=== PATIENT | female | born 1970 | race Caucasian/White ===

== ENCOUNTER 2019-10-10 15:31 | Emergency (ER) | payer OTHER, SELFPAY ==
[2019-10-10 15:34] VITALS: BP 116/90; PULSE 67; RESP 18; TEMP 36.8; O2SAT 98
--- NOTE | 2019-10-10 16:11 | W.ED.GENAD ---
Discharge Plan Disposition Patient Disposition: HOME Condition: Stable Discharge Details Chief Complaint: Abd Prob Clinical Impression: Rectal bleeding Primary Care Provider: Elle Gordillo ED Provider: Branden Early Home Meds and New Rx's Prescriptions: Continued losartan 50 mg Tablet 50 mg PO DAILY RF: 0 atorvastatin 40 mg Tablet 40 mg PO DAILY RF: 0 venlafaxine 75 mg Capsule,Extended Release 24hr 75 mg PO BID RF: 0 tizanidine 4 mg Tablet 4 mg PO BID RF: 0 doxepin 75 mg Capsule 75 mg PO QHS RF: 0 Humulin 70/30 U-100 Insulin 100 unit/mL (70-30) Suspension 40 unit SUBCUT DAILY RF: 0 amlodipine 5 mg Tablet 5 mg PO DAILY RF: 0 aspirin 81 mg Tablet,Delayed Release (Dr/Ec) 81 mg PO DAILY RF: 0 buspirone 10 mg Tablet 10 mg PO TID RF: 0 hydrochlorothiazide 12.5 mg Capsule 12.5 mg PO DAILY RF: 0 hydroxyzine HCl 25 mg Tablet 25 mg PO DAILY RF: 0 Novolin R Flexpen 100 unit/mL (3 mL) Insulin Pen 5 unit SUBCUT DAILY RF: 0 metoprolol tartrate 25 mg Tablet 75 mg PO BID RF: 0 lactulose 10 gram/15 mL Solution 10 g PO DAILY RF: 0 topiramate 150 mg Capsule,Sprinkle,Er 24hr 150 mg PO DAILY RF: 0 Discharge Instructions Instructions: Rectal Bleeding (ED) Additional Instructions: At this time your laboratory values and CT are unremarkable for emergent process. As we discussed I believe you can safely be discharged at this time with very close and prompt outpatient follow-up when you return home to [place] through your primary care provider and a general surgeon for outpatient endoscopy. During her travels if anything changes I do recommend you go directly to the nearest ER. Medical Decision Making 48-year-old female with diabetes, hyperlipidemia, hypertension, obesity, traveling back to [place] tomorrow presents with bright red blood from her rectum that began yesterday, worsened today. Reports abdominal cramping. Denies nausea, vomiting, passing clots from her rectum. She did fall through a trailer floor 2 days ago. She appears well, nontoxic, she is hemodynamically stable. Rectal exam does not reveal obvious hemorrhoid, heme positive guaiac. Will not reflexively type and screen her as her vital signs appear unremarkable and she is not showing signs of active hemorrhaging. Will obtain routine laboratory values, obtain CT imaging, give IV fluid and reassess. This could be related to her IBS, diverticulitis, hemorrhoids, recent trauma, etc. Upon reassessment she is eating a turkey sandwich. White blood cell count of 6.78 hemoglobin 13.4 hematocrit 42. 4, platelet count 232. Electrolytes unremarkable. Creatinine 1.24 with a GFR of 45.98. I did place her for a second liter of fluid. Upon further investigation she does report mild chronic renal disease. She also reports a history of IBS and tells me that she takes Maalox daily. Glucose 110. Urinalysis reveals small blood, small leuk esterase, 5-10 white cells with moderate epis, reflex to culture. Given she has no urinary symptoms will not prophylactically treat with antibiotics and await culture. I was able to review her record from [facility]. X-rays were obtained, no labs or mention of rectal bleeding. CT with contrast read by radiology is unremarkable. Discussed laboratory values and CT findings with patient. She is resting comfortably and has no additional questions or concerns. She is comfortable with discharge at this time. We discussed the importance of returning here or any ER along her travels if her symptoms worsen or evolve. Otherwise I recommend that she follow-up with her primary care provider and a surgeon as soon as she returns to [place] for outpatient endoscopy for further evaluation of her symptoms. At this time she is hemodynamically stable, no signs of hemorrhaging, blood count is unremarkable. I see no reason why she may not be discharged safely with very close outpatient follow-up and return precautions. Medical Records Medical records reviewed: Yes I reviewed the patient's medical records. Medical records narrative: From [facility] Lab Data Lab results reviewed: Yes I reviewed the patient's lab results. Lab results narrative: 10/10/19 16:26 Urine - Reflex from Ua Urine Culture - Pending Laboratory Tests Range/Units 10/10/19 10/10/19 10/10/19 16:00 16:00 16:00 WBC (4.4-10.8) 10^3/uL 6.78 RBC (3.93-5.22) 10^6/uL 4.72 Hgb (11.2-15.7) g/dL 13.4 Hct (36.0-46.0) % 42.4 MCV (80-95) fL 89.8 MCH (27.0-33.0) pg 28.4 MCHC (32.0-36.0) % 31.6 L RDW (11.7-14.6) % 13.2 Plt Count (130-400) 10^3/uL 232 MPV (8.0-11.0) fL 11.5 H Immature Gran % 0.3 Neutrophils % 51.9 Lymphocytes % 33.6 Monocytes % 8.6 Eosinophils % 5.3 Basophils % 0.3 Absolute Neutrophils (1.2-6.7) 10^3/uL 3.52 Absolute Lymphocytes (1.2-3.4) 10^3/uL 2.28 Absolute Monocytes (0.1-0.8) 10^3/uL 0.58 Absolute Eosinophils (0.0-0.7) 10^3/uL 0.36 Absolute Basophils (0.0-0.2) 10^3/uL 0.02 Sodium (136-145) mmol/L 142 Potassium (3.5-5.1) mmol/L 3.5 Chloride (98-107) mmol/L 105 Carbon Dioxide (21.0-32.0) mmol/L 27.5 Anion Gap (3-11) mmol/L 9.5 BUN (7-18) mg/dL 18 Creatinine (0.55-1.02) mg/dL 1.24 H Estimated GFR/1.73 m2 (mL/min/1.73m2) 45.98 Glucose (74-106) mg/dL 110 H Calcium (8.5-10.1) mg/dL 9.4 Total Bilirubin (0.2-1.0) mg/dL 0.2 AST (15-37) U/L 28 ALT (14-59) U/L 50 Alkaline Phosphatase (46-116) U/L 83 Total Protein (6.4-8.2) g/dL 7.5 Albumin (3.4-5.0) g/dL 4.2 Lipase (73-393) U/L 123 Urine Color (Yellow) Urine Clarity (Clear) Urine pH (5-8) Ur Specific [place] (1.005-1.025) Urine Protein (Negative) mg/dL Urine Ketones (Negative) mg/dL Urine Blood (Negative) Urine Nitrite (Negative) Urine Bilirubin (Negative) Urine Urobilinogen (Up TO 0.2) EU/dL Ur Leukocyte Esterase (Negative) Urine RBC (0-2) HPF Urine WBC (0-5) HPF Ur Epithelial Cells (Negative) HPF Urine Crystals (Negative) HPF Urine Bacteria (Negative) HPF Urine Mucus (Negative) Ur Culture Indicated? Urine Glucose (Negative) mg/dL Range/Units 10/10/19 16:26 WBC (4.4-10.8) 10^3/uL RBC (3.93-5.22) 10^6/uL Hgb (11.2-15.7) g/dL Hct (36.0-46.0) % MCV (80-95) fL MCH (27.0-33.0) pg MCHC (32.0-36.0) % RDW (11.7-14.6) % Plt Count (130-400) 10^3/uL MPV (8.0-11.0) fL Immature Gran % Neutrophils % Lymphocytes % Monocytes % Eosinophils % Basophils % Absolute Neutrophils (1.2-6.7) 10^3/uL Absolute Lymphocytes (1.2-3.4) 10^3/uL Absolute Monocytes (0.1-0.8) 10^3/uL Absolute Eosinophils (0.0-0.7) 10^3/uL Absolute Basophils (0.0-0.2) 10^3/uL Sodium (136-145) mmol/L Potassium (3.5-5.1) mmol/L Chloride (98-107) mmol/L Carbon Dioxide (21.0-32.0) mmol/L Anion Gap (3-11) mmol/L BUN (7-18) mg/dL Creatinine (0.55-1.02) mg/dL Estimated GFR/1.73 m2 (mL/min/1.73m2) Glucose (74-106) mg/dL Calcium (8.5-10.1) mg/dL Total Bilirubin (0.2-1.0) mg/dL AST (15-37) U/L ALT (14-59) U/L Alkaline Phosphatase (46-116) U/L Total Protein (6.4-8.2) g/dL Albumin (3.4-5.0) g/dL Lipase (73-393) U/L Urine Color (Yellow) Yellow Urine Clarity (Clear) Clear Urine pH (5-8) 5.5 Ur Specific Chelsea (1.005-1.025) >= 1.030 H Urine Protein (Negative) mg/dL Negative Urine Ketones (Negative) mg/dL Negative Urine Blood (Negative) Small H Urine Nitrite (Negative) Negative Urine Bilirubin (Negative) Negative Urine Urobilinogen (Up TO 0.2) EU/dL 0.2 Ur Leukocyte Esterase (Negative) Small H Urine RBC (0-2) HPF 0-2 Urine WBC (0-5) HPF 5-10 Ur Epithelial Cells (Negative) HPF Moderate Urine Crystals (Negative) HPF Few amorphous Urine Bacteria (Negative) HPF Few Urine Mucus (Negative) Negative Ur Culture Indicated? Yes Urine Glucose (Negative) mg/dL Negative HPI General Mode of arrival: ambulatory. Date/Time Provider Initiated Documentation: 10/10/19 16:09. Limitations to Documentation: no limitations. Information obtained by: patient. HPI Narrative: This is a 48-year-old female with a history of hypertension, diabetes, hyperlipidemia presents to the ER reporting that she experienced mild bright red blood from her rectum yesterday when wiping with tissue paper. Today it was more pronounced. She did not pass any clots. There was no black or tarry stools. She does report mild intermittent diffuse abdominal cramping. Of note she is traveling here from [place], has been here 17 days, and is returning to [place] tomorrow. 2 days ago she was helping a friend move and she stepped on a rotten piece of wood, her left leg went through the floor, and she struck her abdomen on a 2 x 4. She was seen in the ER in [place] the subsequent day because her left hip and ankle are bothering her. Had x-rays that were unremarkable. The blood from her rectum began after that visit. Today after having a bowel movement there was more blood with in the toilet bowl water, she spoke with her primary care provider, and because she is driving back to [place] tomorrow they recommended coming to the ER for evaluation. She denies any pain at her rectum. She does report a history of a bleeding hemorrhoid in the past. She denies recent illness, headache, chest pain, shortness of breath, visual changes, lightheadedness, vomiting, vaginal bleeding or discharge, dysuria, diarrhea or constipation. Denies numbness, tingling, weakness. Related Data Home Medications Medication Instructions Recorded Confirmed Humulin 70/30 U-100 Insulin 40 unit SUBCUT DAILY 10/10/19 10/10/19 Novolin R Flexpen 5 unit SUBCUT DAILY 10/10/19 10/10/19 amlodipine 5 mg PO DAILY 10/10/19 10/10/19 aspirin 81 mg PO DAILY 10/10/19 10/10/19 atorvastatin 40 mg PO DAILY 10/10/19 10/10/19 buspirone 10 mg PO TID 10/10/19 10/10/19 doxepin 75 mg PO QHS 10/10/19 10/10/19 hydrochlorothiazide 12.5 mg PO DAILY 10/10/19 10/10/19 hydroxyzine HCl 25 mg PO DAILY 10/10/19 10/10/19 lactulose 10 g PO DAILY 10/10/19 10/10/19 losartan 50 mg PO DAILY 10/10/19 10/10/19 metoprolol tartrate 75 mg PO BID 10/10/19 10/10/19 tizanidine 4 mg PO BID 10/10/19 10/10/19 topiramate 150 mg PO DAILY 10/10/19 10/10/19 venlafaxine 75 mg PO BID 10/10/19 10/10/19 Allergies Allergy/AdvReac Type Severity Reaction Status Date / Time acetaminophen Allergy Other (See Unverified 10/10/19 16:33 Comment) Sulfa (Sulfonamide Allergy Hives Unverified 10/10/19 16:33 Antibiotics) ibuprofen AdvReac GI Bleeding Unverified 10/10/19 16:33 sumatriptan [From Imitrex] AdvReac Other (See Unverified 10/10/19 16:33 Comment) General Stated Complaint: Abd Prob ZOLTAN: 3 Review of Systems Constitutional Constitutional: Denies fatigue, Denies fever(s) and Denies weakness Eyes Eyes: Denies change in vision ENT Ears, Nose, Mouth, and Throat: Denies dizziness and Denies neck pain Cardiovascular Cardiovascular: Denies chest pain and Denies dyspnea Respiratory Respiratory: Denies cough and Denies dyspnea Gastrointestinal Gastrointestinal: Reports abdominal pain, Denies melena, Reports hematochezia, Denies constipation, Reports cramping, Denies nausea and Denies vomiting Genitourinary Genitourinary: Denies abnormal vaginal bleeding, Denies hematuria and Denies dysuria Musculoskeletal Musculoskeletal: Denies back pain, Denies neck pain, Denies numbness and Denies tingling Integumentary/Breasts Skin/Breast: Denies rash Neurologic Neurologic: Denies dizziness, Denies numbness, Denies tingling and Denies weakness Endocrine Endocrine: Denies fatigue Hematologic/Lymphatic Hematologic/Lymphatic: Denies easy bleeding and Denies easy bruising [facility] Social History Smoking/Tobacco Use Status: Never Alcohol Intake: never Substance use type: does not use Do you feel safe at home: Yes Do you feel safe in your relationship?: Yes Exam Const General: cooperative, healthy appearing, comfortable and no acute distress Orientation: alert, awake and oriented x3 HENMT Head: normal to inspection, normocephalic and atraumatic Face and sinus: normal facial exam Mouth: moist mucous membranes Throat: posterior oropharynx normal Eyes Conjunctivae: conjunctivae normal Sclera: sclerae normal Neck Neck: normal visual inspection, full ROM, trachea midline and supple Resp Effort & Inspection: normal respiratory effort and able to speak in complete sentences Auscultation: clear to auscultation bilaterally Cardio Rate: regular rate Rhythm: regular rhythm GI Inspection: abdominal wall ecchymosis (Quarter sized, appears old, left lower quadrant) Palpation: soft, not firm, no guarding, no masses, not rigid and tender (Diffuse mild with deep palpation) with no rebound tenderness Auscultation: normal bowel sounds Rectal Exam - female: visual inspection normal, normal sphincter tone, heme positive stool, No hemorrhoids, No tenderness and other (Performed with female RN in room) Back/Spine/Pelvis Back: No back tenderness Skin General skin exam: no rashes or lesions noted Neuro General: patient alert, patient awake, patient oriented x3, moves all extremities and no focal motor deficits Cranial Nerves: CN's II-XI intact bilaterally Cognition: normal cognition Speech: speech normal Gait: normal gait Motor: muscle tone normal throughout and strength 5/5 throughout Sensory Exam: no sensory deficits noted Extrem General: normal to inspection, full ROM and capillary refill normal Psych Appearance: grossly normal Mental Status: mental status grossly normal Course Vital Signs Vital signs: Vital Signs Temperature 36.8 C 10/10/19 15:34 Pulse 67 10/10/19 15:34 Respiratory Rate 18 10/10/19 15:34 Blood Pressure 116/90 10/10/19 15:34 Pulse Oximetry 98 10/10/19 15:34 Temperature 36.8 C 10/10/19 15:34 Temperature Source Oral 10/10/19 15:34 Pulse 67 10/10/19 15:34 Respiratory Rate 18 10/10/19 15:34 Respiratory Effort 10/10/19 15:42 Blood Pressure 116/90 10/10/19 15:34 Blood Pressure Position Sitting 10/10/19 15:34 Pulse Oximetry 98 10/10/19 15:34 Oxygen Delivery Method Room Air 10/10/19 15:34 Oxygen Flow Rate 0 10/10/19 15:34 Pain Level 8 10/10/19 15:34
--- NOTE | 2019-10-10 16:15 | DI.CT_ITS ---
EXAM: CT ABDOMEN PELVIS W INDICATION: fall, abd pain, now with bloody stool. COMPARISON: No exams were available for comparison TECHNIQUE: FINDINGS: CT examination of the abdomen and pelvis was performed with a bolus infusion of 100 cc of Omnipaque 3 50. Images obtained through the lung bases are unremarkable. Liver, spleen and pancreas appear normal . Gallbladder has been surgically. No biliary dilatation seen. Adrenals and kidneys are unremarkable. Urinary bladder essentially empty. Abdominal aorta is of normal diameter and no major vascular abnormality is seen. No abdominal wall hernia. No abdominal or pelvic adenopathy. Appendix is normal. No evidence of diverticulitis or bowel obstruction. IMPRESSION: Negative examination of the abdomen and pelvis. No evidence of acute injury. RADIATION DOSE DELIVERED: 1,437mGy.cm Total DLP
[2019-10-10 16:17] LABS: Abs Immature Grans 0.02 10^3/uL (0.0-0.06); Absolute Basophil Count 0.02 10^3/uL (0.0-0.2); Absolute Eosinophil Count 0.36 10^3/uL (0.0-0.7); Absolute Lymphocyte Count 2.28 10^3/uL (1.2-3.4); Absolute Monocyte Count 0.58 10^3/uL (0.1-0.8); Absolute Neutrophil Count 3.52 10^3/uL (1.2-6.7); Basophils % 0.3; Eosinophils % 5.3; HCT 42.4 % (36.0-46.0); HGB 13.4 g/dL (11.2-15.7); Immature Grans % 0.3; Lymphocytes % 33.6; MCH 28.4 pg (27.0-33.0); MCHC 31.6 % (32.0-36.0); MCV 89.8 fL (80-95); MPV 11.5 fL (8.0-11.0); Monocytes % 8.6; Neutrophils % 51.9; Platelet Count 232 10^3/uL (130-400); RBC 4.72 10^6/uL (3.93-5.22); RDW 13.2 % (11.7-14.6); RDW-SD 43.7 fL; WBC 6.78 10^3/uL (4.4-10.8)
[2019-10-10 16:28] LABS: Lipase 123 U/L (73-393)
[2019-10-10] MEDS: Normal Saline 1,000 ML 1000 ML IV ×2 (16:31→18:20)
[2019-10-10 16:34] LABS: ALT 50 U/L (14-59); AST 28 U/L (15-37); Albumin 4.2 g/dL (3.4-5.0); Alkaline Phosphatase 83 U/L (46-116); Anion Gap 9.5 mmol/L (3-11); BUN 18 mg/dL (7-18); Bilirubin, Total 0.2 mg/dL (0.2-1.0); CO2 27.5 mmol/L (21.0-32.0); CREATININE 1.24 mg/dL (0.55-1.02); Calcium 9.4 mg/dL (8.5-10.1); Chloride 105 mmol/L (98-107); Estimated GFR 45.98 (mL/min/1.73m2); Glucose 110 mg/dL (74-106); Potassium 3.5 mmol/L (3.5-5.1); Sodium 142 mmol/L (136-145); Total Protein 7.5 g/dL (6.4-8.2)
[2019-10-10 16:38] LABS: Bilirubin Negative (Negative); Blood Small (Negative); Clarity Clear (Clear); Glucose Negative (Negative); Ketones Negative (Negative); Leukocyte Esterase Small (Negative); Nitrite Negative (Negative); Specific Gravity >= 1.030 (1.005-1.025); Urobilinogen 0.2 EU/dL (Up TO 0.2); pH 5.5 (5-8)
[2019-10-10 16:50] LABS: Bacteria Few HPF (Negative); C & S Indicated? Yes; Crystals Few Amorphous HPF (Negative); Epithelial Cells Moderate HPF (Negative); Mucus Negative (Negative); RBC 0-2 HPF (0-2)
[2019-10-10] MEDS: Omnipaque 350 MG/ML 100 ML BTL IJ (17:22)
[2019-10-10] MEDS: Normal Saline - Diluent 50 ML VIAL IV (17:23)
--- NOTE | 2019-10-10 17:36 | DI.VRAD_ITS ---
PROCEDURE INFORMATION: Exam: CT Abdomen And Pelvis With Contrast Exam date and time: 10/10/2019 5:18 PM Age: 48 years old Clinical indication: Pain and injury or trauma; Initial encounter; Blunt; Generalized; Abdominal pain; Patient HX: Fall, abd pain, now with bloody stool TECHNIQUE: Imaging protocol: Computed tomography of the abdomen and pelvis with intravenous contrast. COMPARISON: No relevant prior studies available. FINDINGS: Liver: Normal. No mass. Gallbladder and bile ducts: Cholecystectomy. Pancreas: Normal. No ductal dilation. Spleen: Normal. No splenomegaly. Adrenals: Normal. No mass. Kidneys and ureters: Normal. No hydronephrosis. Stomach and bowel: Unremarkable. No obstruction. No mucosal thickening. Appendix: No evidence of appendicitis. Intraperitoneal space: Unremarkable. No free air. No significant fluid collection. Vasculature: Unremarkable. No abdominal aortic aneurysm. Lymph nodes: Unremarkable. No enlarged lymph nodes. Bladder: Unremarkable as visualized. Reproductive: Hysterectomy. Bones/joints: Degenerative changes in the spine. Soft tissues: Unremarkable. IMPRESSION: No organ injury or fracture. Dictated and Authenticated by: Erlinda Boykin MD. Ordering:KELSI Otero MD
[2019-10-10 17:43] VITALS: BP 123/81; PULSE 66; RESP 19; TEMP 36.5; O2SAT 98
== END 2019-10-10 18:50 | disposition home or self-care (01) ==
PROVIDERS: Emergency Provider Physician Assistant; PCP Physician Assistant
DX: K62.5 Hemorrhage of anus and rectum (principal); R10.84 Generalized abdominal pain; I12.9 Hypertensive chronic kidney disease with stage 1 through stage 4 chronic kidney disease, or unspecified chronic kidney disease; N18.9 Chronic kidney disease, unspecified; E11.22 Type 2 diabetes mellitus with diabetic chronic kidney disease; Z79.4 Long term (current) use of insulin; K58.9 Irritable bowel syndrome, unspecified
CPT/HCPCS: 36415; 80053; 83690; 96360; 96361; 99285; 74177; 81003; 81015; 85025; 87086; 99284; J3490

== ENCOUNTER 2023-09-21 11:54 | Outpatient (REF) | payer MEDICAID, SELFPAY | END 2023-09-21 11:55 | disposition home or self-care (01) | LOC: LBN 11:54 | PROVIDERS: PCP Family Medicine; Visit Provider Family Medicine | DX: N39.0 Urinary tract infection, site not specified (principal) | CPT/HCPCS: 87077; 87086; 87186 ==

== ENCOUNTER → 2023-09-24 02:35 | Outpatient (CLI) | payer MEDICAID, SELFPAY ==
--- NOTE | 2023-09-24 07:45 | DI.MRI_ITS ---
Exam(s) MR CERVICAL SPINE WO EXAM: MR CERVICAL SPINE WO CLINICAL HISTORY: cervical radiculoapthy,lt c6-7,m54.12 TECHNIQUE: Multiplanar multisequence MRI of the cervical spine was performed without intravenous con trast. COMPARISON: No exams were available for comparison FINDINGS: On the exam is limited by motion. BONES: Vertebral body heights are maintained. Alignment is normal. Bone marrow signal intensity is wi thin normal limits. CERVICAL CORD: Craniovertebral junction is unremarkable. The cervical cord is normal size and signal intensity. Cord signal difficult to evaluate due to degree of motion. SOFT TISSUES: Unremarkable. C2-3: No disc herniation or bulge is identified. No evidence of neural foraminal narrowing. No signi ficant central canal stenosis. C3-4: Small endplate osteophytes and mild disc bulging no evidence of neural foraminal narrowing. No significant central canal stenosis. C4-5: No disc herniation or bulge is identified. No evidence of neural foraminal narrowing. No signif icant central canal stenosis. C5-6: No disc herniation or bulge is identified. No evidence of neural foraminal narrowing. No signif icant central canal stenosis. C6-7: No disc herniation or bulge is identified. No evidence of neural foraminal narrowing. No signif icant central canal stenosis. C7-T1: No disc herniation or bulge is identified. No evidence of neural foraminal narrowing. No signi ficant central canal stenosis. IMPRESSION: Limited exam due to motion. Mild disc bulging and small endplate osteophytes at C3-4 without signifi cant central canal stenosis or neural foraminal narrowing. DATA REPOSITORY:
== END ==
PROVIDERS: PCP Family Medicine; Visit Provider Preventive Medicine Occupational Medicine
DX: M54.12 Radiculopathy, cervical region (principal); M25.78 Osteophyte, vertebrae
CPT/HCPCS: 72141

== ENCOUNTER 2023-12-24 02:01 | Outpatient (CLI) | payer MEDICAID, SELFPAY ==
--- NOTE | 2023-12-24 07:30 | DI.CT_ITS ---
Exam(s) CT ABDOMEN PELVIS W EXAM: CT ABDOMEN PELVIS W CLINICAL HISTORY: L-sided pain,bright red blood rectum,k62.5 TECHNIQUE: Imaging Protocol: Axial computed tomography images with coronal and sagittal reformatted images were created and reviewed. CONTRAST MATERIAL: Intravenous: Omnipaque 350 Contrast volume:85 mL Oral: Yes COMPARISON: CT CT ABDOMEN PELVIS W from 10/10/2019 FINDINGS: ABDOMEN: Lung Bases: Normal where visualized. Liver: Normal density. No measurable mass. Portal, Superior Mesenteric, and Splenic Veins: Unremarkable. Gallbladder and Biliary Tract: Status post cholecystectomy. There is no biliary ductal dilatation. Pancreas: Normal density, no abnormal calcifications or inflammatory process. Spleen: Normal. Adrenals: No masses seen. Kidneys: Normal size, contour and axis. No radiodense stones or obstructive uropathy. There is a smal l hypodensity in the superior pole of the right kidney. It is too small for further characterization. No follow-up is recommended. Abdominal Aorta: Abdominal portion non-dilated. Atherosclerotic calcification is present. Bowel: No obstruction or bowel wall thickening. Appendix is unremarkable. There is a moderate amount of stool throughout the colon suggesting constipation. The ascending colon is collapsed. No pericolon ic inflammatory changes are seen. Peritoneal Cavity: No ascites, collection or mesenteric inflammatory response. No free air. Lymph Nodes: Within normal limits. Bones: Within normal limits for the patient's age. There is a new sclerotic focus in the right iliac bone (series 9, image 69). Soft Tissues: Unremarkable. PELVIS: Bladder: Symmetric distention, no gross wall thickening. Reproductive Organs: Status post hysterectomy. Lymph Nodes: Within normal limits. Bones: Within normal limits for the patient's age. IMPRESSION: 1. No evidence of bowel obstruction or bowel inflammation. 2. Constipation. 3. New sclerotic focus in the right iliac bone. Please correlate with patient's clinical history. Bon e scan should be considered for further evaluation. Unexpected findings RADIATION DOSE DELIVERED: 875.07mGy.cm Total DLP DATA REPOSITORY: All CT scans at this facility are submitted to the National Radiology Data Registry (NRDR) Dose Index Registry (DIR) with the [employer] (A[employer]). RADIATION OPTIMIZATION: All CT scans at this facility use at least one of these dose optimization te chniques: automated exposure control; mA and/or kV adjustment per patient size (includes targeted exa ms where dose is matched to clinical indication); or iterative reconstruction.
[2023-12-24] MEDS: Barium Sulfate 2% W/V-Berry Smoothie 450 ML BTL PO ×2 (11:27→11:28)
[2023-12-24 11:31] LABS: CREATININE 1.2 mg/dL (0.55-1.02); Estimated GFR 53.79 (mL/min/1.73m2)
[2023-12-24] MEDS: Normal Saline - Diluent 50 ML VIAL IJ (13:08)
[2023-12-24] MEDS: Omnipaque 350 MG/ML 100 ML BTL 85 ML IJ (13:09)
== END 2023-12-24 02:21 ==
LOC: DI 02:01
PROVIDERS: PCP Family Medicine; Visit Provider Family Medicine
DX: K62.5 Hemorrhage of anus and rectum (principal)
CPT/HCPCS: 74177; 82565; J3490

== ENCOUNTER 2024-01-03 12:15 | Outpatient (CLI) | payer MEDICAID, SELFPAY ==
[2024-01-03 11:33] LABS: HCT 43.3 % (36.0-46.0); HGB 13.6 g/dL (11.2-15.7); MCH 28.3 pg (27.0-33.0); MCHC 31.4 % (32.0-36.0); MCV 90 fL (80-95); MPV 10.8 fL (8.0-11.0); Platelet Count 208 10^3/uL (130-400); RDW 13.3 % (11.7-14.6); RDW-SD 44.8 fL
[2024-01-03 12:16] LABS: Iron 69 ug/dL (50-170); Total Iron Binding Capacity 300 ug/dL (250-450); Transferrin Sat 23 % (15-50)
[2024-01-03 12:43] LABS: Vitamin B12 294 pg/mL (193-986)
== END 2024-01-03 12:16 | disposition home or self-care (01) ==
LOC: LBO 12:16
PROVIDERS: PCP Family Medicine; Visit Provider Family Medicine
DX: K62.5 Hemorrhage of anus and rectum (principal); M89.9 Disorder of bone, unspecified; R93.89 Abnormal findings on diagnostic imaging of other specified body structures; K05.219 Aggressive periodontitis, localized, unspecified severity; M47.816 Spondylosis without myelopathy or radiculopathy, lumbar region; M19.012 Primary osteoarthritis, left shoulder
CPT/HCPCS: 36415; 85027; 82607; 83540; 83550

== ENCOUNTER 2024-01-30 01:48 | Outpatient (CLI) | payer MEDICAID, SELFPAY ==
--- NOTE | 2024-01-30 06:15 | DI.NM_ITS ---
Exam(s) NM BONE SCAN WHOLE BODY GRP EXAM: NM BONE SCAN WHOLE BODY GRP CLINICAL HISTORY: Sclerotic pelvic lesion on CT,r93.89,m89.9. TECHNIQUE: Injected Dose: 25 mCi Tc-99m MDP Delayed Images: 2-3 hours. COMPARISON: CT CT ABDOMEN PELVIS W from 10/10/[address] ABDOMEN PELVIS W from 12/24/2023 FINDINGS: There is no evidence of significant focal radiopharmaceutical uptake in the right iliac bone at the l ocation of the new nonexpansile sclerotic 7 x 8 millimeter bone lesion seen on recent CT scan of 12/10. There is no abnormal uptake seen in the entire skeleton with the exception of mild increased focal up take in the right sternoclavicular joint which is probably degenerative as well as relatively symmetr ical uptake in the bilateral feet in the lateral midfoot level bilaterally probably at the 4th-5th ta rsometatarsal joints bilaterally. These would be degenerative findings and not related to metastatic disease. IMPRESSION: 1. No abnormal uptake in the entire skeleton which is suspicious for neoplastic disease, primary nor metastatic. Correlation patient's medical history recommended, given that this finding on the CT sca n of 12/24/2023 was not evident on a CT scan of the 10/10/2019. 2. Other findings as discussed above both feet are most probably degenerative at the level of the 4t h and 5th tarsometatarsal joints. DATA REPOSITORY:
== END 2024-01-30 02:08 ==
LOC: DI 01:48
PROVIDERS: PCP Family Medicine; Visit Provider Family Medicine
DX: R93.89 Abnormal findings on diagnostic imaging of other specified body structures
CPT/HCPCS: 78306

== ENCOUNTER 2024-02-20 12:03 | Outpatient (CLI) | payer MEDICAID, SELFPAY ==
[2024-02-20 12:14] VITALS: BP 133/83; PULSE 75; RESP 14; TEMP 36.7; O2SAT 97
[2024-02-20 12:50] VITALS: O2SAT 97
[2024-02-20] MEDS: Lidocaine 2% Multi-Dose 20 ML VIAL IJ (12:56)
--- NOTE | 2024-02-20 13:06 | PDOC.PAIN ---
Date of service: 02/20/24 Time of Service: 13:06 US Guided Injections Type of Ultrasound Guided Injection: Neck Left Levator scapulae, Paraspinous and Trapezius muscle Trigger Point Injection Pre-Procedural Evaluation No skin issues at the injection sites Referral Patient has been referred to the [facility] for Left Levator scapulae, Paraspinous and Trapezius muscle Neck Trigger Point Injection for a chief complaint of Left upper back/neck pain Pre-Procedural Pain Score Pre-procedural pain score: 7/10 Reason for Exam Pain Patient Interview Patient was interviewed and medical record reviewed: Yes There were no contraindications to performing an US guided procedure. Risks,expected side effects, potential benefits were reviewed. The patient consent form was signed and witnessed. Standard time out procedure was performed. Patient Safety She does have a rash to the left lower anterior abdominal quadrant. Procedure Description No sedation given for procedure Patient was placed in the prone position and the following Pulse Ox applied. Pre-Procedure ultrasound scanning performed using a Linear 18 MHz probe Site Preparation Chloroprep Local Anesthesia Skin and subcutaneous tissues anesthetized with: 2 mL of Lidocaine 2%. A 21 G 3.5 Pajunk ultrasound needle was placed under live US guidance using an in-plane approach to the target area. After visualization of the needle tip at the target area Lidocaine 2% were used. Total of Injectate/Medication Note: 5 cc Negative aspiration for blood. [place] were removed without difficulty. Ultrasound images were captured and stored. Patient Mental Status Patient was alert and awake during procedure Vital Signs Vital signs were stable throughout the procedure and recorded by nursing. Follow Up/Discharge Follow up plans and appointments were discussed with patient. Post procedure instruction was given as documented in nursing documentation. Discharge criteria met and patient discharged from [facility]: Yes Post Procedure Pain Post Procedure Pain: 7/10 Patient tolerated procedure well Procedure Outcome: Successful Trigger Point Injection 3+muscles Non US Guided Injections Procedure Description Patient was placed in the prone position Post Procedure Pain Post Procedure Pain: 7/10
== END 2024-02-20 12:04 | disposition home or self-care (01) ==
LOC: PC 12:03
PROVIDERS: PCP Family Medicine; Visit Provider Preventive Medicine Occupational Medicine
DX: M54.12 Radiculopathy, cervical region (principal)
CPT/HCPCS: 20553; J2003

== ENCOUNTER 2024-03-10 15:05 | Outpatient (CLI) | payer MEDICAID, SELFPAY ==
--- NOTE | 2024-03-10 11:27 | DI.RAD_ITS ---
Exam(s) XR CHEST 2V PA LATERAL EXAM: XR CHEST 2V PA LATERAL CLINICAL HISTORY: R/O infiltrate Acute Bronchitis J20.9 TECHNIQUE: 2D digital imaging was performed. Two views. COMPARISON: No exams were available for comparison FINDINGS: HEART: Normal size. Aorta: Not dilated. PULMONARY VASCULATURE: Normal. MEDIASTINUM: Unremarkable. LUNGS: Clear. PLEURAL SPACE: No pleural effusion or pneumothorax. BONE:Unremarkable for age. SOFT TISSUES: Unremarkable. IMPRESSION: No acute abnormality. DATA REPOSITORY: RADIATION DOSE DELIVERED:
== END 2024-03-10 15:25 ==
LOC: DI 15:06
PROVIDERS: PCP Family Medicine; Visit Provider Family Medicine
DX: J20.9 Acute bronchitis, unspecified (principal)
CPT/HCPCS: 71046

== ENCOUNTER 2024-04-07 14:42 | Outpatient (CLI) | payer MEDICAID, SELFPAY ==
[2024-04-07 12:39] LABS: Abs Immature Grans 0.05 10^3/uL (0.0-0.06); Absolute Basophil Count 0.03 10^3/uL (0.0-0.2); Absolute Eosinophil Count 0.07 10^3/uL (0.0-0.7); Absolute Monocyte Count 0.47 10^3/uL (0.1-0.8); Absolute Neutrophil Count 6.38 10^3/uL (1.2-6.7); Basophils % 0.3 %; Eosinophils % 0.8 %; Immature Grans % 0.5 %; Lymphocytes % 23.9 %; MCH 28.6 pg (27.0-33.0); MCHC 31.8 % (32.0-36.0); MCV 90 fL (80-95); Monocytes % 5.1 %; Neutrophils % 69.4 %; Platelet Count 215 10^3/uL (130-400); RBC 4.89 10^6/uL (3.93-5.22); RDW 13.4 % (11.7-14.6); RDW-SD 44.5 fL
[2024-04-07 13:35] LABS: D-Dimer 350 ng/mlFEU (<500)
== END 2024-04-07 14:43 | disposition home or self-care (01) ==
LOC: LBO 14:43
PROVIDERS: PCP Family Medicine; Visit Provider Family Medicine
DX: J06.9 Acute upper respiratory infection, unspecified (principal)
CPT/HCPCS: 36415; 85025; 85379

== ENCOUNTER 2024-04-21 15:32 | Outpatient (CLI) | payer MEDICAID, SELFPAY ==
--- NOTE | 2024-04-21 10:30 | DI.RAD_ITS ---
Exam(s) XR HIP RT COMPLETE AP PELVIS EXAM: XR HIP RT COMPLETE AP PELVIS CLINICAL HISTORY: RIGHT HIP PAIN. TECHNIQUE: 2D digital imaging was performed. COMPARISON: No exams were available for comparison FINDINGS: Two views There is no evidence of pelvic nor hip fracture. No hip joint space narrowing. On the frog lateral view of the right hip no osteophytes evident. Bone density normal. No osseous lesions. IMPRESSION: No significant radiographic findings. DATA REPOSITORY: RADIATION DOSE DELIVERED:
== END 2024-04-21 15:33 | disposition home or self-care (01) ==
LOC: DIORS 15:33
PROVIDERS: PCP Family Medicine; Visit Provider Student in an Organized Health Care Education/Training Program
DX: M25.551 Pain in right hip (principal)
CPT/HCPCS: 73502

== ENCOUNTER 2024-05-01 11:38 | Outpatient (CLI) | payer MEDICAID, SELFPAY ==
--- NOTE | 2024-05-01 09:45 | DI.CT_ITS ---
Exam(s) CT CHEST WO EXAM: CT CHEST WO CLINICAL HISTORY: cough since January 2024 R05.3 CHRONIC COUGH. TECHNIQUE: Imaging protocol: Axial computed tomography images were obtained and coronal and sagittal reformatted images were created and reviewed. Lung Computer Aided Detection (CAD) was utilized. COMPARISON: CT CT ABDOMEN PELVIS W from 10/10/[address] ABDOMEN PELVIS W from 12/24/2023 CR XR CHEST 2V PA LATERAL from 03/10/2024 FINDINGS: The examination is limited due to patient motion artifact. Tracheobronchial tree: Patent where visualized. No bronchiectasis is present. Pulmonary parenchyma: No consolidation or dominant measurable mass. No architectural distortion. Ther e is a 3 mm nodule in the right middle lobe (series 2, image 69). There is a 3 mm nodule in the late ral aspect of the left upper lobe (series 2, image 41). Mediastinum and Merari: No dominant adenopathy or fluid collection. The esophagus is unremarkable. Thyroid gland: Unremarkable. Pleura: No effusion or pneumothorax. Heart: The heart is not dilated. Single-vessel coronary artery calcification is present. No pericard ial effusion. Aorta: Thoracic aorta non-dilated. Atherosclerotic calcification is present. Upper abdomen: Unremarkable. Lymph nodes: Within normal limits. Tubes, Catheters, and Lines: There is a cardiac monitoring device seen in the left anterior chest wal l. Soft tissues: Unremarkable. Bones:Within normal limits for the patient's age. IMPRESSION: 1. No acute pulmonary process. No pulmonary infiltrates are seen. 2. Two pulmonary nodules as described above. Solid nodules smaller than 6 mm do not require routine follow-up in all patients with high clinical r isk; however, some nodules smaller than 6 mm with suspicious morphology, upper lobe location, or both may warrant follow-up at 12 months (grade 2A; weak recommendation, high-quality evidence). (Jose et al., 2017) Single solid noncalcified nodules. ???Solid nodules smaller than 6 mm (those 5 mm or smaller) do not require routine follow-up in patients at low risk (grade 1C; strong recommendation, low- or very-low- quality evidence). (Jose et al., 2017) RADIATION DOSE DELIVERED: 293.26mGy.cm Total DLP 293.26mGy.cm Total DLP DATA REPOSITORY: All CT scans at this facility are submitted to the National Radiology Data Registry (NRDR) Dose Index Registry (DIR) with the [employer] ([employer]). RADIATION OPTIMIZATION: All CT scans at this facility use at least one of these dose optimization te chniques: automated exposure control; mA and/or kV adjustment per patient size (includes targeted exa ms where dose is matched to clinical indication); or iterative reconstruction.
== END 2024-05-01 11:58 ==
LOC: DI 11:39
PROVIDERS: PCP Family Medicine; Visit Provider Nurse Practitioner
DX: R05.3 Chronic cough (principal); R91.8 Other nonspecific abnormal finding of lung field
CPT/HCPCS: 71250

== ENCOUNTER 2024-05-02 00:48 | Outpatient (CLI) | payer MEDICAID, SELFPAY ==
[2024-05-02] MEDS: Inhaler, Assist Device 1 EACH MC (12:04)
[2024-05-02] MEDS: Levalbuterol HFA 15 GM INH 4 PUFF IH (12:05)
--- NOTE | 2024-05-12 15:53 | W.PFT ---
Date of service: 05/02/24 Time of Service: 11:08 Pulmonary Function Test Result Indications: Dyspnea Interpretation Spirometry: There is no airflow limitation. No significant bronchodilator response. Impression Normal spirometry Clinical Correlation therefore is recommended.
== END 2024-05-02 00:49 | disposition home or self-care (01) ==
LOC: RT 00:48
PROVIDERS: PCP Family Medicine; Visit Provider Student in an Organized Health Care Education/Training Program
DX: J98.4 Other disorders of lung (principal)
CPT/HCPCS: 94060

== ENCOUNTER 2024-07-30 09:48 | Outpatient (REF) | payer MEDICAID, SELFPAY ==
[2024-07-30 09:53] LABS: Abs Immature Grans 0.01 10^3/uL (0.0-0.06); Absolute Basophil Count 0.02 10^3/uL (0.0-0.2); Absolute Eosinophil Count 0.19 10^3/uL (0.0-0.7); Absolute Lymphocyte Count 1.31 10^3/uL (1.2-3.4); Absolute Monocyte Count 0.43 10^3/uL (0.1-0.8); Absolute Neutrophil Count 2.98 10^3/uL (1.2-6.7); Basophils % 0.4 %; Eosinophils % 3.8 %; HGB 14.3 g/dL (11.2-15.7); Immature Grans % 0.2 %; Lymphocytes % 26.5 %; MCH 28.1 pg (27.0-33.0); MCHC 31.8 % (32.0-36.0); MCV 89 fL (80-95); MPV 10.6 fL (8.0-11.0); Monocytes % 8.7 %; Neutrophils % 60.4 %; Platelet Count 203 10^3/uL (130-400); RBC 5.08 10^6/uL (3.93-5.22); RDW 12.9 % (11.7-14.6); RDW-SD 42.1 fL; WBC 4.94 10^3/uL (4.4-10.8)
[2024-07-30 19:29] LABS: IgE 45 IU/mL (<158)
== END 2024-07-30 09:49 | disposition home or self-care (01) ==
LOC: LBN 09:48
PROVIDERS: PCP Family Medicine; Visit Provider Physician Assistant Surgical
DX: J45.909 Unspecified asthma, uncomplicated (principal)
CPT/HCPCS: 82785; 85025

== ENCOUNTER 2024-08-12 12:39 | Outpatient (CLI) | payer MEDICAID, SELFPAY ==
--- NOTE | 2024-08-12 11:15 | DI.RAD_ITS ---
Exam(s) XR CHEST 2V PA LATERAL EXAM: XR CHEST 2V PA LATERAL CLINICAL HISTORY: Cough, fever, URI, J06.9. TECHNIQUE: 2D digital imaging was performed. COMPARISON: CR XR CHEST 2V PA LATERAL from 03/10/2024 FINDINGS: 2 views: Heart size is normal. The mediastinum is not widened. Lungs are clear. No infiltrates nor pleural effusions. Anterior chest wall cardiac loop detector noted. IMPRESSION: No acute pulmonary findings. DATA REPOSITORY: RADIATION DOSE DELIVERED:
== END 2024-08-12 12:59 ==
LOC: DI 12:39
PROVIDERS: PCP Family Medicine; Visit Provider Family Medicine
DX: J06.9 Acute upper respiratory infection, unspecified (principal)
CPT/HCPCS: 71046

== ENCOUNTER 2024-08-14 12:39 | Outpatient (REF) | payer MEDICAID, SELFPAY | END 2024-08-14 12:40 | disposition home or self-care (01) | LOC: LBN 12:39 | PROVIDERS: PCP Family Medicine; Visit Provider Family Medicine | DX: R82.90 Unspecified abnormal findings in urine (principal); R30.0 Dysuria; R10.9 Unspecified abdominal pain | CPT/HCPCS: 87077; 87086; 87186 ==

== ENCOUNTER 2024-09-16 11:18 | Outpatient (REF) | payer MEDICAID, SELFPAY | END 2024-09-16 11:19 | disposition home or self-care (01) | LOC: LBN 11:18 | PROVIDERS: PCP Family Medicine; Visit Provider Family Medicine | DX: R30.0 Dysuria (principal); R10.9 Unspecified abdominal pain; R82.90 Unspecified abnormal findings in urine; R82.89 Other abnormal findings on cytological and histological examination of urine | CPT/HCPCS: 87086 ==

== ENCOUNTER 2024-09-29 15:47 | Outpatient (REF) | payer MEDICAID, SELFPAY | END 2024-09-29 15:48 | disposition home or self-care (01) | LOC: LBN 15:47 | PROVIDERS: PCP Family Medicine; Visit Provider Family Medicine | DX: N39.0 Urinary tract infection, site not specified (principal) | CPT/HCPCS: 87086 ==

== ENCOUNTER 2024-10-06 15:05 | Outpatient (REF) | payer MEDICAID, SELFPAY | END 2024-10-06 15:06 | disposition home or self-care (01) | LOC: LBN 15:05 | PROVIDERS: PCP Family Medicine; Visit Provider Family Medicine | DX: N39.0 Urinary tract infection, site not specified (principal) | CPT/HCPCS: 87086 ==

== ENCOUNTER 2024-10-14 14:52 | Outpatient (REF) | payer MEDICAID, SELFPAY | END 2024-10-14 14:53 | disposition home or self-care (01) | LOC: LBN 14:52 | PROVIDERS: PCP Family Medicine; Visit Provider Family Medicine | DX: N39.0 Urinary tract infection, site not specified (principal) | CPT/HCPCS: 87086 ==

== ENCOUNTER 2024-11-14 12:06 | Outpatient (REF) | payer MEDICAID, SELFPAY | END 2024-11-14 12:07 | disposition home or self-care (01) | LOC: LBN 12:06 | PROVIDERS: PCP Family Medicine; Visit Provider Family Medicine | DX: N39.0 Urinary tract infection, site not specified (principal) | CPT/HCPCS: 87086 ==

== ENCOUNTER 2025-01-05 19:30 | Outpatient (REF) | payer MEDICAID, SELFPAY | END 2025-01-05 19:31 | disposition home or self-care (01) | LOC: LBN 19:30 | PROVIDERS: PCP Family Medicine; Visit Provider Family Medicine | DX: N39.0 Urinary tract infection, site not specified (principal) | CPT/HCPCS: 87086 ==

== ENCOUNTER → 2025-02-23 00:19 | Outpatient (CLI) | payer MEDICAID, SELFPAY ==
--- NOTE | 2025-02-23 13:24 | DI.CT_ITS ---
Exam(s) CT RENAL COLIC WO EXAM: CT RENAL COLIC WO CLINICAL HISTORY: L sided flank pain, hematuria,n23. TECHNIQUE: Imaging Protocol: Axial computed tomography images with coronal and sagittal reformatted images were created and reviewed. Oral: / no COMPARISON: CT CT ABDOMEN PELVIS W from 12/24/2023 FINDINGS: Lung Bases: No acute findings. Liver: Normal density. No suspicious mass. Gallbladder and biliary tract: Cholecystectomy. No biliary dilation. Pancreas: Normal density. No abnormal calcifications or inflammatory process. Spleen: Normal. Kidneys: Normal size, contour and axis. No radiodense stones. No obstructive uropathy. No suspicious masses seen. Adrenal glands: No masses seen. Lymph nodes: Within normal limits. Vasculature: Abdominal aorta non-dilated. Minimal atherosclerotic changes. Soft tissues: Unremarkable. Bladder: Nearly empty. No wall thickening. No mass or calculi. Bowel: There is some ingested high-density material noted within the distal small bowel, colon and appendix. The appendix appears normal. Normal quantity of stool. No obstruction or bowel wall thickening. Peritoneal cavity: No ascites. No focal collection. No mesenteric inflammatory response. Reproductive organs: Unremarkable. Bones: Unremarkable for age. IMPRESSION: No acute abnormality in the abdomen or pelvis. No evidence of urinary tract calculi or hydronephrosis. RADIATION DOSE DELIVERED: Total DLP DATA REPOSITORY: All CT scans at this facility are submitted to the National Radiology Data Registry (NRDR) Dose Index Registry (DIR) with the [employer] ([employer]). RADIATION OPTIMIZATION: All CT scans at this facility use at least one of these dose optimization techniques: automated exposure control; mA and/or kV adjustment per patient size (includes targeted exams where dose is matched to clinical indication); or iterative reconstruction.
== END ==
LOC: DI 00:20
PROVIDERS: PCP Family Medicine; Visit Provider Family Medicine
DX: N23 Unspecified renal colic (principal)
CPT/HCPCS: 74176